=== PATIENT | female | born 1965 | race Caucasian/White ===

== ENCOUNTER 2025-04-24 15:29 | Emergency (ER) | payer MEDICAID, SELFPAY ==
--- NOTE | 2025-04-24 15:37 | EKG_ITS ---
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1965 Requested By: Brock Mancera Order Number: [id number] Reading MD: Brock Mancera Measurements Intervals [place] Rate: 115 P: 78 GA: 160 QRS: -26 QRSD: 88 T: 75 QT: 317 QTc: 439 Interpretive Statements SINUS TACHYCARDIA LOW QRS VOLTAGE IN PRECORDIAL LEADS [QRS DEFLECTION < 1.0 mV IN CHEST LEADS] POSSIBLE ANTERIOR MYOCARDIAL INFARCTION , PROBABLY OLD [30 ms Q WAVE IN V3/V4, OR R < 0.2 mV IN V4] ABNORMAL RHYTHM ECG Compared to ECG 09/19/2023 07:22:29 Low QRS voltage now present Sinus rhythm no longer present Myocardial infarct finding still present /store/S0/[id number].pdf
--- NOTE | 2025-04-24 15:41 | PD.EDARRY ---
ED Arrhythmia Palp. RME/HPI General Chief Complaint: Arrhythmia/Palpitations Stated Complaint: Palpitations today, HR 209 Time Seen by Provider: 04/24/25 15:42 Arrival date/time: 04/24/25 15:29 Limitations: no limitations RME / HPI RME / HPI narrative: DR. DENNEY MAIN ED EVALUATION: 59-year-old female with past medical history of SVT, asthma, COPD (still smokes), and methamphetamine abuse presents to the Emergency Department with complaint of fast heart rate starting approximately 30 minutes ago. Patient reports similar episodes in the past associated with SVT. No other symptoms reported. Related Data Home Medications ?Medication ?Instructions ?Recorded ?Confirmed No Known Home Medications 09/23/19 09/23/19 Allergies Allergy/AdvReac Type Severity Reaction Status Date / Time No Known Allergies Allergy Verified 04/24/25 15:34 Review of Systems Review of Systems Systems Reviewed: All systems reviewed, normal except as documented Past Medical History Past Medical History CARDIAC: Positive Myocardial Infarction GASTROINTESTINAL: Positive Gastrointestinal Disorders and Gastroesophageal Reflux Disease MUSCULOSKELETAL: Positive Musculoskeletal Disorders and Arthritis PSYCHO/SOCIAL: Positive Bipolar Disorder, Depression and Anxiety Family History FAMILY HISTORY: Positive Family Respiratory Disorders and Family Cardiac Disorders Surgical History SURGICAL: Positive Tubal Ligation and Section Social History SMOKING STATUS: Current every day smoker SUBSTANCE USE: methamphetamine (Almost on a daily basis. The last use was today.) ED Exam General Limitations: Present no limitations General appearance: Present alert and in no apparent distress Head Head exam: Present atraumatic, normocephalic and normal inspection Eye Eye exam: Present normal appearance, PERRL and EOMI ENT ENT exam: Present normal exam, normal oropharynx and mucous membranes moist Neck Neck exam: Present normal inspection, full ROM and trachea midline Chest Chest inspection: Present normal inspection and symmetric chest wall rise Respiratory Respiratory exam: Present normal lung sounds bilaterally Cardiovascular Cardiovascular exam: Present tachycardia and irregular rhythm Abdominal Exam Abdominal exam: Present soft and normal bowel sounds Extremities Exam Extremities exam: Present normal inspection and full ROM Back Exam Back exam: Present normal inspection and full ROM Neurological Exam Neurological exam: Present alert, oriented X3 and CN II-XII intact Psychiatric Psychiatric exam: Present normal affect and normal mood Skin Skin exam: Present warm, dry, intact and normal color Course Quality Measures none Orders Category Date Time Status EKG (ED ONLY) *Do not use* NOW Care 04/24/25 15:37 Active EKG (ED Only) Stat Exams 04/24/25 15:37 Ordered Arrhythmia/Palpitations MDM Narrative MDM Narrative:: I, Latricia Kim, am scribing for and in the presence of Dr. Denney. SVT resolved Increased creatinine Methamphetamine abuse, patient admits to using. Advised to stop using methamphetamine. Plan to discharge and recommended the patient to consider both cardiology and nephrology consults. Patient data External records reviewed:: [facility] previous records Clinical information provided by:: patient Social determinants that could affect healthcare access:: substance use Patient has the following chronic illnesses:: SVT, asthma, COPD (still smokes), and methamphetamine abuse. How is presenting disease/condition affected by chronic disease/condition?: caused by Evaluation data The following diagnostics were reviewed and interpreted by me:: lab results, radiology exam(s) and EKG tracing(s) Lab and/or radiology exams considered but not ordered:: none Interpretation Summary: My interpretation: EKG #1 performed at 1534 hours, SVT, rate 215, left axis deviation My interpretation: EKG #2 performed at 1641 hours, sinus tachycardia, rate 112, no STEMI Medications / Prescriptions Medications or Prescriptions considered but not ordered:: none Medication administrations:: see above if any Consultations Consultation(s) initiated? (list below): No Diagnosis Differential diagnosis arrhythmia/palpitations: palpitations, anxiety, sinus tachycardia, supraventricular tachycardia and other (stimulant-induced tachycardia, COPD exacerbation) Most likely diagnosis given after review of the tests above:: SVT resolved Increased creatinine Methamphetamine abuse Admission Indicated Admission indicated?: not indicated Admission Request Was there a request for admission?: No Disposition Plan Disposition Plan: Discharge Discharge Attestation Discharge Attestation: The patient and all family members were given an opportunity to ask questions and understood the discharge instructions. Discharge instructions specifically effects, indications for sooner follow up or return to the emergency department, and the expected course of current diagnosis. Patient condition: Stable Discharge Plan Plan Patient Disposition: HOME (Self Care) Patient condition on transfer: Stable Prescriptions/Referrals Prescriptions/Med Rec: No Action No Known Home Medications Referrals: No Primary/Family,Physician [Primary Care Provider] - In 1 week Problem List Clinical Impression: SVT (supraventricular tachycardia), Methamphetamine abuse, Increase in creatinine Patient/Caregiver Discharge Instructions Additional Instructions: Please follow-up with your primary care physician within 2-3 days and get both cardiology and nephrology consults if needed. Stop using methamphetamine. Return to the Emergency Department as needed. Print Language: [place] Stand Alone Forms: Elvira Award Info., Patient Portal Info Letter
[2025-04-24 15:42] VITALS: PULSE 211
--- NOTE | 2025-04-24 15:42 | XR_ITS ---
Examination: AP chest single view Technique one AP portable semiupright chest single view Date and time: April 24, 2025 1620 1:00 PM INDICATIONS: Chest pain and cardiac palpitations today. FINDINGS: Normal heart size. The lungs are clear. Moderate osteopenia with old fracture right seventh rib IMPRESSION: No active disease.
[2025-04-24 15:54] VITALS: BP 118/88; PULSE 209
[2025-04-24] MEDS: ADENOSINE INJ 3 MG/ML VIAL 6 MG IVP (15:54)
[2025-04-24 16:00] VITALS: BP 118/88; PULSE 212
[2025-04-24] MEDS: ADENOSINE INJ 3 MG/ML VIAL 12 MG IVP (16:00)
[2025-04-24 16:02] VITALS: BP 118/88; PULSE 114; RESP 20; O2SAT 98
[2025-04-24 16:06] VITALS: PULSE 116; PULSE 213
[2025-04-24 16:08] LABS: Basophils # (Auto) 0.1 Thou/mm3 (0.0-0.2); Basophils % (Auto) 1 % (0-2.5); Eosinophils # (Auto) 0.2 Thou/mm3 (0.0-0.5); Eosinophils % (Auto) 2 % (0-10); Hematocrit 43.3 % (36.0-46.0); Hemoglobin 14.3 g/dL (12.0-16.0); Immature Granulocytes Auto 0.04 Thou/mm3 (0.00-0.00); Lymphocytes # (Auto) 3.5 Thou/mm3 (1.0-4.8); Lymphocytes % (Auto) 31 % (10-50); Mean Corpuscular HGB Conc 33.0 g/dl (31.0-37.0); Mean Corpuscular Hemoglobin 29.3 pg (25.0-35.0); Mean Corpuscular Volume 89 fL (80-100); Monocytes # (Auto) 1.0 Thou/mm3 (0.0-0.8); Monocytes % (Auto) 9 % (0-12); Neutrophils # (Auto) 6.6 Thou/mm3 (1.8-7.7); Neutrophils % (Auto) 58 % (37-80); Nucleated Red Blood Cell # 0.00 Thou/mm3 (0.00-0.00); Nucleated Red Blood Cell % 0 /100 WBC (0); Platelet Count 284 Thou/mm3 (140-440); RDW Standard Deviation 41.9 fL (36.4-46.3); Red Blood Count 4.88 Miln/mm3 (4.00-5.20); White Blood Count 11.5 Thou/mm3 (3.6-11.0)
[2025-04-24 16:13] VITALS: BMI 30.9
--- NOTE | 2025-04-24 16:30 | EKG_ITS ---
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
[2025-04-24 16:49] LABS: Alanine Aminotransferase 25 U/L (10-49); Albumin, Serum 4.5 gm/dL (3.5-5.0); Albumin/Globulin Ratio 1.7 (1.2-2.2); Alkaline Phosphatase 68 U/L (46-116); Anion Gap 12 (7-16); Aspartate Amino Transferase 35 U/L (0-34); BUN/Creatinine Ratio 6 Ratio (12-20); Bilirubin,Total 0.7 mg/dL (0.3-1.2); Blood Urea Nitrogen 11 mg/dL (9-23); Calcium 9.7 mg/dL (8.3-10.6); Calcium (Corrected) 9.7 mg/dL (8.5-10.1); Carbon Dioxide 23.9 mMol/L (20.0-31.0); Chloride 104 mMol/L (98-107); Creatinine (Component) 1.7 mg/dL (0.6-1.3); Estimated Creatinine Clearance 38.2 mL/min (>60); Globulin 2.7 gm/dL (2.3-3.5); Glucose 145 mg/dL (74-106); Magnesium 1.6 mg/dL (1.6-2.6); Osmolality,Calculated 281 (275-295); Potassium 3.9 mMol/L (3.4-5.1); Sodium 140 mMol/L (136-145); Total Protein 7.2 gm/dL (5.7-8.2); Troponin I < 0.020 ng/mL (0.0-0.045); eGFR 34 See Note
[2025-04-24 17:14] LABS: INR 1.0 (0.9-1.3); Partial Thromboplastin Time 26.9 Seconds (22.0-36.0); Prothrombin Time 10.8 Seconds (9.0-12.2)
[2025-04-24 17:57] VITALS: BP 148/83; PULSE 98; RESP 17; TEMP 37.1; O2SAT 98
== END 2025-04-24 17:58 | disposition home or self-care (01) ==
PROVIDERS: Emergency Provider Family Medicine
DX: I47.10 Supraventricular tachycardia, unspecified (principal); F15.10 Other stimulant abuse, uncomplicated; R79.89 Other specified abnormal findings of blood chemistry; R07.9 Chest pain, unspecified
CPT/HCPCS: 36415; 71045; 80053; 83735; 84484; 85025; 85610; 85730; 93005; 96374; 96376; 99284; J0153